=== PATIENT | male | born 1970 | race Hispanic/Latino ===

== ENCOUNTER 2024-09-28 15:20 | Emergency (ER) | payer BC, SELFPAY ==
[2024-09-28] MEDS ORDERED: MECLIZINE HCL 12.5 MG TAB ONE (15:47)
--- NOTE | 2024-09-28 16:08 | RAD REPORT ---
EXAMINATION: CT HEAD WITHOUT CONTRAST CLINICAL INDICATION: Male, 53 years old.DIZZINESS TECHNIQUE: Axial CT images from the skull base to the vertex without intravenous contrast. Coronal an d sagittal reformatted images were created from the data set. One or more of the following dose reduction techniques were used: Automated exposure control, adjustment of the mA and/or kV according to patient size, and/or iterative reconstruction. Unless otherwise specified, incidental findings do not require dedicated imaging follow-up. [id number]. COMPARISON: No prior exam. FINDINGS: INTRACRANIAL: No acute intracranial hemorrhage. No hydrocephalus. No mass effect or midline shift. No significant white matter disease. VASCULATURE: No visualized abnormalities in the arteries or dural venous sinuses. SCALP/SKULL: No significant soft tissue or osseous abnormalities. SINUSES: The visualized paranasal sinuses and mastoid air cells are predominantly clear. IMPRESSION: No acute intracranial abnormality.
[2024-09-28 18:11] LABS: Absolute Eosinophils 0.2 K/uL (0-0.5); Absolute Lymphocytes (CBC) 1.4 K/uL (0.7-4.9); Absolute Monocytes 0.6 K/uL (0.1-1.3); Basophils % 0.8 % (0-1.3); Eosinophils % 2.6 % (0-4.4); Hemoglobin 12.2 g/dL (13.6-17.9); Lymphocytes % 22.8 % (15.3-44.8); MCH 28.2 pg (27.0-35.0); MPV 7.6 fL (7.6-11.3); Monocytes % 10.2 % (3.3-12.3); Neutrophils % 63.6 % (41.7-73.7); Platelets 307 thou/uL (152-406); RBC Red Blood Cell Count 4.34 M/uL (4.33-5.43); Red Cell Distribution Width 12.5 % (12.1-15.2)
[2024-09-28 18:44] LABS: Albumin 3.2 g/dL (3.4-5.0); Albumin/Globulin Ratio 0.9 (1.1-1.8); Anion Gap 8.8 mEq/L (5.0-15.0); Bilirubin Direct 0.2 mg/dL (0-0.2); Bilirubin Indirect, Calculated 0.4 mg/dL (0.2-0.8); Bilirubin Total 0.6 mg/dL (0.2-1.0); Globulin 3.5 g/dL (2.3-3.5); Magnesium 2.3 mg/dL (1.6-2.4); Potassium 3.8 mEq/L (3.5-5.1); Protein, Total 6.7 g/dL (6.4-8.2); Troponin High Sensitivity 3.1 pg/mL (<58.9)
--- NOTE | 2024-09-28 19:20 | ER ---
Nurse's Notes [facility] Name: Javier Pettit Age: 53 yrs Sex: Male : 1970 Arrival Date: 09/28/2024 Time: 15:20 Bed 17 Private MD: Diagnosis: Vertigo, dizziness Presentation: 09/28 15:42 Chief complaint: Patient states: Dizziness since Friday. Coronavirus screen: At this ld1 time, the client does not indicate any symptoms associated with coronavirus-19. Ebola Screen: No symptoms or risks identified at this time. Initial Sepsis Screen: Does the patient meet any 2 criteria? No. Patient's initial sepsis screen is negative. Does the patient have a suspected source of infection? No. Patient's initial sepsis screen is negative. Risk Assessment: Do you want to hurt yourself or someone else? Patient reports no desire to harm self or others. Onset of symptoms was September 28, 2024. 15:42 Method Of Arrival: Ambulatory ld1 15:42 Acuity: WILLIS 3 ld1 Triage Assessment: 15:43 General: Appears in no apparent distress. comfortable, Behavior is calm, cooperative, ld1 appropriate for age. Pain: Denies pain. EENT: No signs and/or symptoms were reported regarding the EENT system. Neuro: Level of Consciousness is awake, alert, obeys commands, Oriented to person, place, time, situation, Appropriate for age Reports dizziness. Cardiovascular: Capillary refill < 3 seconds Patient's skin is warm and dry. Respiratory: Airway is patent Respiratory effort is even, unlabored. GI: Abdomen is flat, non-distended. : No signs and/or symptoms were reported regarding the genitourinary system. Derm: No signs and/or symptoms reported regarding the dermatologic system. Musculoskeletal: No signs and/or symptoms reported regarding the musculoskeletal system. Historical: - Allergies: 15:43 No Known Allergies; ld1 - PMHx: 15:43 Diabetes - NIDDM; Hypertension; ld1 - Immunization history:: Adult Immunizations up to date. - Infectious Disease History:: Denies. - Social history:: Smoking status: Patient denies any tobacco usage or history of. Screenin:00 [facility] ED Fall Risk Assessment (Adult) History of falling in the last 3 months, hb including since admission No falls in past 3 months (0 pts) Confusion or Disorientation No (0 pts) Intoxicated or Sedated No (0 pts) Impaired Gait No (0 pts) Mobility Assist Device Used No (0 pt) Altered Elimination No (0 pt) Score/Fall Risk Level 0 - 2 = Low Risk Oriented to surroundings, Maintained a safe environment. 18:00 Abuse screen: Denies threats or abuse. Denies injuries from another. Nutritional hb screening: No deficits noted. Tuberculosis screening: No symptoms or risk factors identified. Assessment: 18:00 General: Appears in no apparent distress. Behavior is calm, cooperative. Pain: Denies hb pain. Neuro: Level of Consciousness is awake, alert, obeys commands, Oriented to person, place, time, situation, Reports dizziness. Cardiovascular: Patient's skin is warm and dry. Respiratory: Respiratory effort is even, unlabored, Respiratory pattern is regular, symmetrical. GI: No signs and/or symptoms were reported involving the gastrointestinal system. : No signs and/or symptoms were reported regarding the genitourinary system. EENT: No signs and/or symptoms were reported regarding the EENT system. Derm: Skin is pink, warm \T\ dry. Musculoskeletal: No signs and/or symptoms reported regarding the musculoskeletal system. 19:05 Reassessment: ASSUMED CARE OF PT. PT LYING IN BED. NO DISTRESS NOTED. VS STABLE. FAMILY jj7 AT BEDSIDE. CALL WALTERS IN REACH Patient states feeling better. General: Appears in no apparent distress. comfortable, Behavior is calm, cooperative, appropriate for age. Pain: Denies pain. Neuro: Reports dizziness, STATES DIZZINESS IS GETTING BETTER AFTER MEDS HE WAS GIVEN. Vital Signs: 15:42 BP 116 / 64; Pulse 102; Resp 18; Temp 98.1(TE); Pulse Ox 98% on R/A; Weight 68.04 kg; ld1 Height 5 ft. 6 in. ; Pain 0/10; 18:44 BP 118 / 70; Pulse 97; Resp 15; Pulse Ox 100% on R/A; hb 19:05 BP 108 / 66; Pulse 92; Resp 16; Pulse Ox 98% ; jj7 19:42 BP 110 / 66; Pulse 94; Resp 17; Temp 98.3; Pulse Ox 98% ; Pain 0/10; jj7 15:42 Body Mass Index 24.21 (68.04 kg, 167.64 cm) ld1 15:42 Pain Scale: Adult ld1 19:42 Pain Scale: Adult jj7 ED Course: 15:24 Patient arrived in ED. al6 15:27 Atiya Chu MD is Attending Physician. sp3 15:43 Triage completed. ld1 15:43 Arm band placed on right wrist. ld1 18:00 Patient has correct armband on for positive identification. Call light in reach. Side hb rails up X 1. Provided Education on: tests, result times. 18:00 Initial lab(s) drawn, by me, sent to lab. Inserted saline lock: 20 gauge in right hb antecubital area, using aseptic technique. Blood collected. Flushed with 10 mL NS. 18:25 CT Head Brain wo Cont In Process Unspecified. EDMS 18:28 Catalina Torrez, RN is Primary Nurse. hb 19:42 No provider procedures requiring assistance completed. IV discontinued, intact, jj7 bleeding controlled, No redness/swelling at site. Pressure dressing applied. Administered Medications: 15:49 Drug: Meclizine PO 25 mg PO once Route: PO; ld1 19:43 Follow up: Response: Marked relief of symptoms jj7 Medication: 18:00 VIS not applicable for this client. Outcome: 19:20 Discharge ordered by . sp3 19:42 Discharged to home ambulatory, jj7 19:42 Condition: improved 19:42 Discharge instructions given to patient, family, Instructed on discharge instructions, follow up and referral plans. medication usage, Demonstrated understanding of instructions, follow-up care, medications, Prescriptions given X 1, 19:43 Patient left the ED. jj7 Signatures: Dispatcher [employer] EDOK Catalina Torrez RN RN Marina Caro RN RN ld1 Atiya Chu MD MD sp3 Valdo Dos Santos RN RN jj7 Florinda Donaldson al6
--- NOTE | 2024-09-28 19:20 | EDPHYS ---
Physician Documentation [facility] Name: Javier Pettit Age: 53 yrs Sex: Male : 1970 Arrival Date: 09/28/2024 Time: 15:20 Bed 17 Private MD: ED Physician Atiya Chu HPI: 09/28 18:28 This 53 yrs old Male presents to ER via Ambulatory with complaints of sp3 Dizziness. 18:28 53-year-old male with history of diabetes, hypertension presents to ED with chief sp3 complaint lightheadedness and dizziness for 2 to 3 days. He denies any trauma, sudden onset of symptoms, headache, neck pain, chest pain, shortness of breath, back pain, abdominal pain, nausea, vomit, diarrhea, full syncope, or any other signs or symptoms on ROS at this time.. Historical: - Allergies: 15:43 No Known Allergies; ld1 - PMHx: 15:43 Diabetes - NIDDM; Hypertension; ld1 - Immunization history:: Adult Immunizations up to date. - Infectious Disease History:: Denies. - Social history:: Smoking status: Patient denies any tobacco usage or history of. ROS: 18:29 Constitutional: Negative for fever, chills, and weight loss, Eyes: Negative for injury, sp3 pain, redness, and discharge, ENT: Negative for injury, pain, and discharge, Neck: Negative for injury, pain, and swelling, Cardiovascular: Negative for chest pain, palpitations, and edema, Respiratory: Negative for shortness of breath, cough, wheezing, and pleuritic chest pain, Abdomen/GI: Negative for abdominal pain, nausea, vomiting, diarrhea, and constipation, Back: Negative for injury and pain, MS/Extremity: Negative for injury and deformity, Skin: Negative for injury, rash, and discoloration, Psych: Negative for depression, anxiety, suicide ideation, homicidal ideation, and hallucinations, Allergy/Immunology: Negative for hives, rash, and allergies, Endocrine: Negative for neck swelling, polydipsia, polyuria, polyphagia, and marked weight changes, Hematologic/Lymphatic: Negative for swollen nodes, abnormal bleeding, and unusual bruising, 18:29 All other systems are negative, Exam: 18:29 Constitutional: This is a well developed, well nourished patient who is awake, alert, sp3 and in no acute distress. Head/Face: Normocephalic, atraumatic. Eyes: Pupils equal round and reactive to light, extra-ocular motions intact. Lids and lashes normal. Conjunctiva and sclera are non-icteric and not injected. Cornea within normal limits. Periorbital areas with no swelling, redness, or edema. ENT: Nares patent. No nasal discharge, no septal abnormalities noted. External auditory canals are clear. Oropharynx with no redness, swelling, or masses, exudates, or evidence of obstruction, uvula midline. Mucous membranes moist. Neck: Trachea midline, no thyromegaly or masses palpated, and no cervical lymphadenopathy. Supple, full range of motion without nuchal rigidity, or vertebral point tenderness. No Meningismus. Chest/axilla: Normal chest wall appearance and motion. Nontender with no deformity. No lesions are appreciated. Cardiovascular: Regular rate and rhythm with a normal S1 and S2. No gallops, murmurs, or rubs. Normal PMI, no JVD. No pulse deficits. Respiratory: Lungs have equal breath sounds bilaterally, clear to auscultation and percussion. No rales, rhonchi or wheezes noted. No increased work of breathing, no retractions or nasal flaring. Abdomen/GI: Soft, non-tender, with normal bowel sounds. No distension or tympany. No guarding or rebound. No evidence of tenderness throughout. Back: No spinal tenderness. No costovertebral tenderness. Full range of motion. Skin: Warm, dry with normal turgor. Normal color with no rashes, no lesions, and no evidence of cellulitis. MS/ Extremity: Pulses equal, no cyanosis. Neurovascular intact. Full, normal range of motion. Neuro: Awake and alert, GCS 15, oriented to person, place, time, and situation. Cranial nerves II-XII grossly intact. Motor strength 5/5 in all extremities. Sensory grossly intact. Cerebellar exam normal. Normal gait. Psych: Awake, alert, with orientation to person, place and time. Behavior, mood, and affect are within normal limits. Vital Signs: 15:42 BP 116 / 64; Pulse 102; Resp 18; Temp 98.1(TE); Pulse Ox 98% on R/A; Weight 68.04 kg; ld1 Height 5 ft. 6 in. ; Pain 0/10; 18:44 BP 118 / 70; Pulse 97; Resp 15; Pulse Ox 100% on R/A; hb 19:05 BP 108 / 66; Pulse 92; Resp 16; Pulse Ox 98% ; jj7 19:42 BP 110 / 66; Pulse 94; Resp 17; Temp 98.3; Pulse Ox 98% ; Pain 0/10; jj7 15:42 Body Mass Index 24.21 (68.04 kg, 167.64 cm) ld1 15:42 Pain Scale: Adult ld1 19:42 Pain Scale: Adult jj7 MDM: 15:46 Medical Screening Exam initiated sp3 18:29 Data reviewed: vital signs, nurses notes, lab test result(s), EKG, radiologic studies. 3 ED course: 53-year-old male with dizziness and near syncope. Differential diagnosis includes orthostatic hypotension, vertigo, viral illness, and to a much lesser degree intracranial pathology including CVA or stroke. And not highly suspicious of the latter. Will obtain CT scan of the head, general labs and administer meclizine p.o. Disposition pending workup and patient course after reevaluation. CT scan of the head is negative and labs are pending. Vital signs remain normal.. 19:19 ED course: CT scan negative and all labs within normal limits. We will safely discharge 3 patient home on meclizine with follow-up to PCP.. 0218 15:49 Order name: Basic Metabolic Panel; Complete Time: 19:18 3 09/28 15:49 Order name: CBC with Diff 3 09/28 15:49 Order name: Hepatic Function; Complete Time: 19:18 3 09/28 15:49 Order name: Magnesium; Complete Time: 19:18 sp3 09/28 15:49 Order name: Troponin High Sensitivity; Complete Time: 19:18 3 09/28 15:49 Order name: CT Head Brain wo Cont; Complete Time: 18:27 3 09/28 15:49 Order name: IV Saline Lock; Complete Time: 19:01 3 09/28 15:49 Order name: Labs collected and sent; Complete Time: 19:01 3 Administered Medications: 15:49 Drug: Meclizine PO 25 mg PO once Route: PO; ld1 19:43 Follow up: Response: Marked relief of symptoms jj7 Disposition Summary: 09/28/24 19:20 Discharge Ordered Notes: Location: Home sp3 Condition: Stable sp3 Diagnosis - Vertigo, dizziness sp3 Followup: sp3 - With: Private Physician - When: Upon discharge from the Emergency Department - Reason: Continuance of care Discharge Instructions: - Discharge Summary Sheet sp3 - Vertigo sp3 Forms: - Medication Reconciliation Form sp3 - Antibiotic Education sp3 - Prescription Opioid Use sp3 - Patient Portal Instructions sp3 - Leadership Thank You Letter sp3 Prescriptions: - Meclizine 25 mg Oral Tablet - take 1 tablet ORAL route every 8 hours As needed; 30 tablet; Refills: 0, sp3 Product Selection Permitted Signatures: Dispatcher [employer] EDMS Marina Caro RN RN ld1 Atiya Chu MD MD sp3 Valdo Dos Santos RN jj7 Corrections: (The following items were deleted from the chart) 18:26 18:26 CT-HEAD/BRAIN W/O CONTRAST ordered. EDMS EDMS 19:41 15:49 EKG - Nurse/Tech ordered. sp3 jj7
[2024-09-28 22:21] VITALS: O2SAT 98
[2024-09-28 22:23] VITALS: BP 110/66; TEMP 98.3
== END 2024-09-28 19:43 | disposition home or self-care (01) ==
LOC: ER 15:20
DX: R42 Dizziness and giddiness (principal); I10 Essential (primary) hypertension
CPT/HCPCS: 85025; 80048; 36415; 83735; 80076; 84484; 70450; J8597